=== PATIENT | male | born 1980 | race African-American/Black ===

== ENCOUNTER 2019-09-21 18:34 | Emergency (ER) | payer BC ==
[~2019-09-21] VITALS: Ht 182.9 cm; Wt 158.8 kg
[~2019-09-21 18:34] MED LIST: LORTAB 5 MG/5001 TA1 PO; NOHOMEMEDICATIONS; VALIUM5 MG PO
[2019-09-21 19:31] LABS: ANION GAP 6 mmol/L (7-16); BUN 14 mg/dL (7-18); CALCIUM 8.5 mg/dL (8.5-10.1); CHLORIDE 105 mmol/L (98-107); CO2 29 mmol/L (21-32); CREATININE 1.3 mg/dL (0.7-1.3); GLUCOSE 88 mg/dL (74-106); SODIUM 140 mmol/L (136-145)
[2019-09-21 19:40] LABS: TROPONIN-I <0.06 ng/mL (<0.06)
[2019-09-21 19:48] LABS: ABSOLUTE NEUTROPHILS 3.6 thou/uL (1.4-8.2); BASOPHILS 0.3 % (0.0-2.0); EOSINOPHILS 1.4 % (0.0-3.0); HEMATOCRIT 44.5 % (42.0-52.0); HEMOGLOBIN 14.9 gm/dL (14.0-18.0); LYMPHOCYTES 46.8 % (24.0-44.0); MCH 31.1 pg (26.0-34.0); MCHC 33.6 g/dL (28.0-37.0); MCV 92.7 fL (80.0-100.0); MONOCYTES 6.8 % (1.0-8.0); PLATELET COUNT 187 thou/uL (150-400); POLYS 44.7 % (36.0-66.0); RDW 13.8 % (10.5-14.5); WBC 8.1 thou/uL (4.0-11.0)
[2019-09-21] MEDS ORDERED: NAPROSYN500 MG PO ×2 (20:19→20:35)
[2019-09-21 20:39] VITALS: BP 139/85
--- NOTE | 2019-09-22 09:31 | EKG ---
[facility] [place] [address] ELECTROCARDIOGRAM REPORT Name: ELI DC Room #: DEP [facility]#: [id number] Admission: 09/21/19 Attend Phys: Discharge: 09/21/19 Date of : 80 Report #: [id number] THIS REPORT FOR: cc: Jose Martinez MD, David A. MD Lundgren,Reynaldo Kilgore MD [facility] THIS REPORT FOR: //name// [facility] ED Test Date: 2019-09-21 Test Time: 18:37:16 Pat Name: ELI DC Department: Room: Gender: Maxillofacial Prosthetics Dentist: [facility] : 1980 Requested By: Kingston Urbina Order Number: [id number] MD: Reynaldo Alab Measurements Intervals Harrison Rate: 95 P: 40 SC: 169 QRS: 4 QRSD: 94 T: -2 QT: 335 QTc: 421 Interpretive Statements Sinus rhythm Nonspecific T wave abnormality No previous ECG available for comparison Electronically Signed On 09-22-2019 9:31:28 CDT by Reynaldo Alba [email or web address] <ELECTRONICALLY SIGNED> By: Reynaldo Alba MD, [facility] 09/22/19 0931 36 36 Reynaldo Alba MD, [facility] /EPI
== END 2019-09-21 20:40 | disposition home or self-care (01) ==
LOC: ER 18:34
PROVIDERS: Emergency Medicine
DX: R07.89 Other chest pain (principal); I10 Essential (primary) hypertension; Z79.899 Other long term (current) drug therapy

== ENCOUNTER 2019-11-15 12:15 | Emergency (ER) | payer BC ==
[~2019-11-15] VITALS: Ht 182.9 cm; Wt 163.3 kg
[~2019-11-15 12:15] MED LIST changes: +NAPROSYN500 MG PO
[2019-11-15 13:27] LABS: ABSOLUTE NEUTROPHILS 5.5 thou/uL (1.4-8.2); BASOPHILS 0.5 % (0.0-2.0); HEMATOCRIT 41.7 % (42.0-52.0); HEMOGLOBIN 14.2 gm/dL (14.0-18.0); LYMPHOCYTES 22.6 % (24.0-44.0); MCH 30.8 pg (26.0-34.0); MCHC 34.1 g/dL (28.0-37.0); MCV 90.2 fL (80.0-100.0); MONOCYTES 6.4 % (1.0-8.0); PLATELET COUNT 160 thou/uL (150-400); POLYS 70.5 % (36.0-66.0); RBC 4.62 mil/uL (4.50-6.00); RDW 13.5 % (10.5-14.5); WBC 7.8 thou/uL (4.0-11.0)
[2019-11-15 13:36] LABS: CALCIUM 8.2 mg/dL (8.5-10.1); CREATININE 1.1 mg/dL (0.7-1.3); POTASSIUM 3.9 mmol/L (3.5-5.1)
[2019-11-15 13:41] LABS: ALBUMIN 3.4 g/dL (3.4-5.0); TOTAL BILIRUBIN 0.8 mg/dL (0.2-1.0); TOTAL PROTEIN 8.1 g/dL (6.4-8.2)
[2019-11-15 13:54] LABS: URINE BILIRUBIN NEGATIVE (Negative); URINE BLOOD 2+ (Negative); URINE CLARITY CLEAR; URINE COLOR YELLOW; URINE GLUCOSE-RANDOM* NEGATIVE (Negative); URINE KETONES NEGATIVE (Negative); URINE LEUKOCYTES-REFLEX NEGATIVE (Negative); URINE NITRITE-REFLEX NEGATIVE (Negative); URINE PROTEIN (DIPSTICK) 2+ (Negative); URINE SPECIFIC GRAVITY 1.025 (1.005-1.035); URINE UROBILINOGEN 0.2 E.U./dl (0.2-1.0)
[2019-11-15 14:17] LABS: CASTS None Seen /LPF (None Seen); CRYSTALS None Seen /LPF (None Seen); SQUAMOUS None Seen /LPF (0-3); URINE WBC-REFLEX None Seen /HPF (0-5)
[2019-11-15 14:18] LABS: BACTERIA-REFLEX 1-9 Few /HPF (None Seen); URINE RBC 0-2 Rare /HPF (0-2)
[2019-11-15] MEDS ORDERED: ZESTRIL20 MG PO (14:34)
[2019-11-15] MEDS ORDERED: PROMETH-CODEIN 65 ML PO (16:48)
[2019-11-15] MEDS ORDERED: VENTOLIN HFA 1818 GM INH (16:48)
[2019-11-15 17:01] VITALS: BP 142/72
== END 2019-11-15 17:03 | disposition home or self-care (01) ==
LOC: ER 12:15
PROVIDERS: Physician Assistant
DX: U07.1 COVID-19 (principal); R53.83 Other fatigue; R05 Cough; I10 Essential (primary) hypertension; Z79.899 Other long term (current) drug therapy